=== PATIENT | male | born 2000 | race Caucasian/White ===

== ENCOUNTER 2019-08-07 23:12 | Emergency (ER) | payer SELFPAY ==
[~2019-08-07] VITALS: Ht 172.7 cm; Wt 70.0 kg
--- NOTE | 2019-08-07 23:28 | NUR ---
YULISSA williamson after being escorted out of [employer]. Patient had altered mental status with AAOx0 and GCS 10. Patient's pupils were dilated at approx 7mm. It was reported that patient may have taken unknown psychadelic drugs. Patient currently alert and responsive to verbal. AAOx1 to self but otherwise confused and answers most questions inappropriately. Patient is in NAD. Respirations even and unlabored. White powder noted on patient's nose.
--- NOTE | 2019-08-07 23:53 | NUR ---
Patient got out of [facility] stating he had to use the bathroom. Provided urinal for patient. He refused and stated he needs the bathroom. Patient also refusing to provide urine sample in bathroom. Patient ambulatory with a steady gait. He states, "I'm fine."
--- NOTE | 2019-08-08 00:05 | NUR ---
Patient responsive to questions. AAOx4, GCS 15. However, patient is unable to figure out how to get back to his hotel safely. Patient states he lives in [place] and came to [place] for a concert with his friends. He is staying at a [place] which [place] [employer]. Patient is unsure and does not know his room number.
--- NOTE | 2019-08-08 00:51 | NUR ---
Luis Mai [place] [phone]
--- NOTE | 2019-08-08 01:05 | NUR ---
Spoke with patient's friend Luis. He states him and friends will take a taxi to come pick patient up.
[2019-08-08 01:09] VITALS: BP 147/79
--- NOTE | 2019-08-08 01:31 | NUR ---
Discharge instructions given. All questions and concerns addressed. Patient ambulatory with a steady gait. Belongings with patient.
--- NOTE | 2019-08-08 01:31 | NUR ---
Patient's friends arrived to picket [employer] patient.
== END 2019-08-08 01:45 | disposition home or self-care (01) ==
LOC: ED 08-08 00:41
DX: G92 Toxic encephalopathy (principal); R41.82 Altered mental status, unspecified
CPT/HCPCS: 99283